=== PATIENT | female | born 1965 | race Two or more races ===

== ENCOUNTER 2021-04-16 13:53 | Emergency (ER) | payer BC ==
[~2021-04-16] VITALS: Ht 152.4 cm; Wt 73.5 kg
--- NOTE | 2021-04-16 14:09 | NUR ---
PT WALKED BACK FROM TRIAGE WITH CHIEF COMPLAINT OF ABD PAIN AND NAUSEA INTERMITTENT FOR 2 WEEKS.
--- NOTE | 2021-04-16 14:13 | NUR ---
MARGARITA BAILON AT BEDSIDE
--- NOTE | 2021-04-16 14:27 | NUR ---
task RN: lab at bedside to draw
[2021-04-16] MEDS ORDERED: MAALOX/HYOSCYAMINE/LIDOCAINE 45 ML BTL PO ONE (14:30)
[2021-04-16] MEDS ORDERED: SODIUM CHLORIDE FLUSH 10ML SYR IVF ONE (14:30)
[2021-04-16] MEDS ORDERED: FAMOTIDINE 20 MG/2 ML IVPush ONE (14:30)
[2021-04-16] MEDS ORDERED: ONDANSETRON 2MG/ML, 2ML IVPush ONE (14:30)
[2021-04-16] MEDS ORDERED: SODIUM CHLORIDE 0.9% 1,000ML IVBOLUS ONE (14:30)
[2021-04-16] MEDS ORDERED: HYDROmorphone 1 MG/ML, 1ML INJ IV ONE (14:30)
--- NOTE | 2021-04-16 14:32 | NUR ---
task RN: EKG at bedside
[2021-04-16] MEDS ORDERED: HYDROmorphone 2 MG/ML, 1ML ONE (14:35)
[2021-04-16] MEDS ORDERED: ONDANSETRON 2MG/ML, 2ML ONE (14:36)
[2021-04-16] MEDS ORDERED: FAMOTIDINE 20 MG/2 ML ONE (14:37)
[2021-04-16 14:44] LABS: BASOPHILS % (AUTO) 1 % (0-1); EOSINOPHILS % (AUTO) 2 % (1-7); LYMPHOCYTES % (AUTO) 26 % (22-44); MEAN CORPUSCULAR HEMOGLOBIN 26.5 pg (27.0-34.8); MEAN CORPUSCULAR HGB CONC 32.8 g/dL (32.4-35.8); MEAN PLATELET VOLUME 9.2 fL (7.4-10.4); MONOCYTES % (AUTO) 8 % (2-9); NEUTROPHILS % (AUTO) 63 % (42-75); PLATELET COUNT 270 x10^3/uL (130-400); RED BLOOD COUNT 5.03 x10^6/uL (3.82-5.3); RED CELL DISTRIBUTION WIDTH 13.9 % (9.6-15.2)
[2021-04-16 14:47] LABS: ALANINE AMINOTRANSFERASE 24 U/L (12-78); ALBUMIN 3.3 g/dL (3.4-5.0); ANION GAP 8 mmol/L (5-15); CALCIUM 9.1 mg/dL (8.5-10.1); CHLORIDE 109 mmol/L (98-107); CREATININE 0.62 mg/dL (0.55-1.02)
[2021-04-16 14:49] LABS: ALKALINE PHOSPHATASE 123 U/L (45-117); BILIRUBIN,TOTAL 0.3 mg/dL (0.2-1.0); TOTAL PROTEIN 7.7 g/dL (6.4-8.2)
--- NOTE | 2021-04-16 14:55 | NUR ---
task RN: pt has been medicated pe order. updated on POC. declines warm blankets at this time pt advised not to drive after [place]. pt verbalized understanding. pt daughter at bedside to drive her home
[2021-04-16] MEDS ORDERED: MAALOX/HYOSCYAMINE/LIDOCAINE 45 ML BTL ONE (15:20)
--- NOTE | 2021-04-16 15:29 | NUR ---
PT RESTING IN BED, STATES FEELING MUCH BETTER.
--- NOTE | 2021-04-16 17:00 | NUR ---
DC INSTRUCTIONS REVIEWED
[2021-04-16 17:12] VITALS: BP 114/74
== END 2021-04-16 17:32 | disposition home or self-care (01) ==
LOC: ED 17:00
DX: K52.9 Noninfective gastroenteritis and colitis, unspecified (principal); Z90.710 Acquired absence of both cervix and uterus
CPT/HCPCS: 36415; 80053; 83690; 85025; 93005; 96361; 96374; 96375; 99285; J1170; J2405; J7030